=== PATIENT | male | born 1945 | race Caucasian/White ===

== ENCOUNTER 2016-08-04 09:13 | Emergency (ER) | payer OTHER ==
[~2016-08-04] VITALS: Ht 167.6 cm; Wt 108.6 kg
[2016-08-04 10:35] LABS: COLOR BLOODY ((YELLOW)); SPECIFIC GRAVITY 1.018 (1.000-1.030)
[2016-08-04 10:36] LABS: ADD MIUA? YES; BILIRUBIN NEGATIVE; BLOOD LARGE; GLUCOSE (STRIP) NEGATIVE; KETONES NEGATIVE; LEUKOCYTES LARGE; NITRITE NEGATIVE; PH, URINE 6.5 (5-8); PROTEIN (STRIP) 100; UROBILINOGEN 0.8 MG/DL (0.2-1.0)
[2016-08-04 10:43] LABS: HEMATOCRIT 37.2 % (38.0-50.0); MCH 29.6 PG (29.0-34.0); MCHC 33.6 G/DL (30.0-36.0); MCV 88.2 FL (86-99); PLATELET COUNT 283 K/uL (156-360); RBC DIS.WIDTH-CV 14.1 % (11.8-14.6); RBC DIS.WIDTH-SD 44.9 % (39-53); RED BLOOD COUNT 4.22 M/uL (4.00-5.50)
[2016-08-04] MEDS ORDERED: LESCOL40 MG PO (10:45)
[2016-08-04] MEDS ORDERED: CLONIDINE HCL0.1 MG PO (10:46)
[2016-08-04] MEDS ORDERED: TENORMIN50 MG PO (10:46)
[2016-08-04 10:47] LABS: RED BLOOD CELLS TNTC /HPF (0-5); UCUL ADDED? YES
[2016-08-04] MEDS ORDERED: DIOVAN HCT 11 TABLE1 PO (10:47)
[2016-08-04] MEDS ORDERED: SINGULAIR10 MG PO (10:47)
[2016-08-04 10:48] LABS: BASOPHIL COUNT 0.1 K/uL (0-0.1); EOSINOPHIL (%) 2.6 % (0-5); EOSINOPHIL COUNT 0.3 K/uL (0-0.3); IMMATURE GRANULOCYTE (%) 0.2 % (0.0-0.7); IMMATURE GRANULOCYTE COUNT 0.2 K/uL; LYMPHOCYTE COUNT 0.8 K/uL (1.0-2.8); MONOCYTE COUNT 1.2 K/uL (0-0.8); NEUTROPHIL (%) 76.1 % (45-76); NEUTROPHIL COUNT 7.6 K/uL (1.8-6.4)
[2016-08-04] MEDS ORDERED: HYDRALAZINE HCL25 MG PO (10:48)
[2016-08-04] MEDS ORDERED: XANAX0.5 MG PO (10:48)
[2016-08-04] MEDS ORDERED: PRILOSEC20 MG PO (10:48)
[2016-08-04] MEDS ORDERED: OSTEO BI-FLEX1 EAC1 PO (10:49)
[2016-08-04] MEDS ORDERED: ASPIR 8181 M1 PO (10:49)
[2016-08-04] MEDS ORDERED: BREO ELLIPTA 21 EACH IH (10:49)
[2016-08-04] MEDS ORDERED: ALLOPURINOL100 MG PO (10:50)
[2016-08-04] MEDS ORDERED: CLINDAMYCIN HC300 MG PO (10:51)
[2016-08-04 10:54] LABS: CHLORIDE 100 mEq/L (99-109); POTASSIUM 3.6 mEq/L (3.7-5.4); SODIUM 136 mEq/L (136-147)
[2016-08-04 10:56] LABS: GLUCOSE 129 mg/dL (70-99)
[2016-08-04 10:57] LABS: ANION GAP 11 MEQ/L (2-14)
[2016-08-04 10:58] LABS: TOTAL BILIRUBIN 0.4 mg/dL (0.0-1.0)
[2016-08-04 11:00] LABS: ALKALINE PHOSPHATASE 108 IU/L (3-129); GFR ESTIMATE (CALCULATED) 53 mL/min/
[2016-08-04 11:01] LABS: UREA NITROGEN (BUN) 23 mg/dL (9-23)
[2016-08-04] MEDS ORDERED: BACTRIM,SEPT1 TABLET PO (13:07)
[2016-08-04] MEDS ORDERED: PYRIDIUM100 MG PO (13:07)
[2016-08-04] MEDS ORDERED: DOXAZOSIN MESYLA1 MG PO (13:07)
[2016-08-04 13:23] VITALS: BP 128/81
== END 2016-08-04 13:46 | disposition home or self-care (01) ==
LOC: EME 09:13
PROVIDERS: Emergency Medicine
DX: N41.9 Inflammatory disease of prostate, unspecified (principal); I10 Essential (primary) hypertension; E78.5 Hyperlipidemia, unspecified; J45.909 Unspecified asthma, uncomplicated; Z95.5 Presence of coronary angioplasty implant and graft; Z79.82 Long term (current) use of aspirin; Z85.46 Personal history of malignant neoplasm of prostate; Z87.442 Personal history of urinary calculi; Z88.1 Allergy status to other antibiotic agents
CPT/HCPCS: 74176; 80053; 81003; 83605; 85025; 87077; 87086; 87186; 99281; 99285; J0696; J7050